=== PATIENT | male | born 1975 | race American Indian/Alaskan Native ===

== ENCOUNTER 2019-11-24 15:03 | Emergency (ER) | payer OTHER ==
[2019-11-24] MEDS ORDERED: BACITRACIN ZINC OINT 28.4 GM TP ONE (17:35)
[2019-11-24] MEDS ORDERED: oxyCODONE /ACETAMINOPHEN 5-325MG TAB PO PRN (17:35)
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
[2019-11-24] MEDS ORDERED: oxyCODONE /ACETAMINOPHEN 5-325MG TAB PO ONE (19:50)
[2019-11-24] MEDS ORDERED: IBUPROFEN 600 MG TAB PO ONE ×2 (19:51→19:53)
[2019-11-24 20:11] VITALS: BP 165/115
== END 2019-11-24 20:00 | disposition home or self-care (01) ==
LOC: ED 15:03
DX: S82.892A Other fracture of left lower leg, initial encounter for closed fracture (principal); S70.212A Abrasion, left hip, initial encounter; V89.2XXA Person injured in unspecified motor-vehicle accident, traffic, initial encounter; Y93.89 Activity, other specified; Y92.410 Unspecified street and highway as the place of occurrence of the external cause; Y99.8 Other external cause status
CPT/HCPCS: 99283; 99284